=== PATIENT | male | born 2000 | race Asian ===

== ENCOUNTER 2023-07-27 21:05 | Emergency (ER) | payer MEDICAID ==
[~2023-07-27] VITALS: Ht 170.1 cm; Wt 53.1 kg
--- NOTE | 2023-07-27 21:39 | ED General ---
General Chief Complaint: Dizziness/Syncope Stated Complaint: DIZZY/LIGHTHEADED Nursing Triage Note: PATIENT STATES THAT APPROX. 2 HOURS AGO HE BEGAN TO SHAKE AND THEN APPROX 45 MIN AGO HE HAD AN EPISODE OF THROBBING HEAD PAIN, LIGHT HEADEDNESS AND DIZZINESS. CURRENTLY RATES HIS HEADACHE AT 4/10. Source of Information: Patient Exam Limitations: No Limitations History of Present Illness Date Seen by Provider: Jul 27, 2023 Time Seen by Provider: 21:39 Initial Comments Patient is a 23-year-old male who presents ED for generalized weakness, lightheadedness, dizziness, shakiness and chest pain. Patient states symptoms started a few hours ago. Started having shakiness in his upper and lower extremities. This resolved fairly quickly. Patient states he went to ride a mechanical bull at school. [place] fine afterwards and then all of a sudden he started feeling lightheaded, dizzy and throbbing on the right side of his head. He has had history of right-sided head throbbing in the past. States that shakiness seems to be improving some. Denies of any vomiting. He has had some mild chest pain and shortness of breath but that has improved. He reports similar symptoms in the past when he is tired but states he does not feel tired. Patient did eat which did not make any of the symptoms better. Denies of any current pain with urination frequent urination, abdominal pain, visual changes, unilateral weakness or sensory changes, neck pain fever chills runny nose sore throat. Patient denies history of feeling lightheaded or dizzy in the past. Allergies and Home Medications Patient Home Medication List Home Medication List Reviewed: Yes Review of Systems Review of Systems Constitutional: No chills, No diaphoresis; dizziness; No fever, No malaise; weakness EENTM: No blurred vision, No double vision Respiratory: No cough, No dyspnea on exertion Cardiovascular: No chest pain, No edema Gastrointestinal: No abdominal pain, No dysphagia, No nausea, No vomiting Genitourinary: No decreased output, No discharge Musculoskeletal: No back pain, No joint pain All Other Systems Reviewed Negative Unless Noted: Yes Physical Exam Vital Signs Vital Signs - First Documented 07/27/23 21:12 Temp 36.6 Pulse 83 Resp 16 B/P (MAP) 130/87 (101) Pulse Ox 98 O2 Delivery Room Air Capillary Refill : Less Than 3 Seconds Height, Weight, BMI Height: '" Weight: lbs. oz. kg; 18.00 BMI Method: General Appearance: No Apparent Distress, WD/WN Eyes: Bilateral Eye Normal Inspection, Bilateral Eye PERRL, Bilateral Eye EOMI HEENT: PERRL/EOMI, TMs Normal, Normal ENT Inspection, Pharynx Normal Neck: Full Range of Motion, Normal Inspection, Non Tender Respiratory: Chest Non Tender, Lungs Clear, Normal Breath Sounds, No Accessory Muscle Use, No Respiratory Distress Cardiovascular: Regular Rate, Rhythm, No Edema, No Gallop, No JVD Gastrointestinal: Normal Bowel Sounds, No Organomegaly, No Pulsatile Mass, Non Tender Back: Normal Inspection Extremity: Normal Capillary Refill, Normal Inspection Neurologic/Psychiatric: Alert, Oriented x3, No Motor/Sensory Deficits, Normal Mood/Affect, 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 Skin: Normal Color, Warm/Dry Progress/Results/Core Measures Suspected Sepsis SIRS Temperature: Pulse: 83 Respiratory Rate: 16 Laboratory Tests 07/27/23 21:45: White Blood Count 10.3 Blood Pressure 130 /87 Mean: 101 Laboratory Tests 07/27/23 21:45: Creatinine 0.81, Platelet Count 290, Total Bilirubin 2.0H Results/Orders Lab Results Laboratory Tests Test 07/27/23 21:45 07/27/23 21:52 Range/Units White Blood Count 10.3 4.3-11.0 10^3/uL Red Blood Count 4.83 4.30-5.52 10^6/uL Hemoglobin 15.7 13.3-17.7 g/dL Hematocrit 45 40-54 % Mean Corpuscular Volume 92 80-99 fL Mean Corpuscular Hemoglobin 33 25-34 pg Mean Corpuscular Hemoglobin Concent 35 32-36 g/dL Red Cell Distribution Width 12.0 10.0-14.5 % Platelet Count 290 130-400 10^3/uL Mean Platelet Volume 10.0 9.0-12.2 fL Immature Granulocyte % (Auto) 0 % Neutrophils (%) (Auto) 75 42-75 % Lymphocytes (%) (Auto) 17 12-44 % Monocytes (%) (Auto) 6 0-12 % Eosinophils (%) (Auto) 0 0-10 % Basophils (%) (Auto) 0 0-10 % Neutrophils # (Auto) 7.8 1.8-7.8 10^3/uL Lymphocytes # (Auto) 1.8 1.0-4.0 10^3/uL Monocytes # (Auto) 0.7 0.0-1.0 10^3/uL Eosinophils # (Auto) 0.0 0.0-0.3 10^3/uL Basophils # (Auto) 0.0 0.0-0.1 10^3/uL Immature Granulocyte # (Auto) 0.0 0.0-0.1 10^3/uL Sodium Level 140 135-145 MMOL/L Potassium Level 3.9 3.6-5.0 MMOL/L Chloride Level 103 98-107 MMOL/L Carbon Dioxide Level 28 21-32 MMOL/L Anion Gap 9 5-14 MMOL/L Blood Urea Nitrogen 8 7-18 MG/DL Creatinine 0.81 0.60-1.30 MG/DL Estimat Glomerular Filtration Rate 129 BUN/Creatinine Ratio 10 Glucose Level 104 70-105 MG/DL Calcium Level 9.9 8.5-10.1 MG/DL Corrected Calcium 8.5-10.1 MG/DL Magnesium Level 2.2 1.6-2.4 MG/DL Total Bilirubin 2.0 H 0.1-1.0 MG/DL Aspartate Amino Transf (AST/SGOT) 25 5-34 U/L Alanine Aminotransferase (ALT/SGPT) 19 0-55 U/L Alkaline Phosphatase 69 40-136 U/L Total Protein 7.3 6.4-8.2 GM/DL Albumin 4.7 H 3.2-4.5 GM/DL Thyroid Stimulating Hormone (TSH) 3.05 0.35-4.94 UIU/ML Urine Color YELLOW Urine Clarity CLEAR Urine pH 7.0 5-9 Urine Specific Jackson 1.010 L 1.016-1.022 Urine Protein NEGATIVE NEGATIVE Urine Glucose (UA) NEGATIVE NEGATIVE Urine Ketones NEGATIVE NEGATIVE Urine Nitrite NEGATIVE NEGATIVE Urine Bilirubin NEGATIVE NEGATIVE Urine Urobilinogen 0.2 < = 1.0 MG/DL Urine Leukocyte Esterase NEGATIVE NEGATIVE Urine RBC (Auto) TRACE H NEGATIVE Urine RBC NONE /HPF Urine WBC 0-2 /HPF Urine Squamous Epithelial Cells NONE /HPF Urine Crystals NONE /LPF Urine Bacteria TRACE /HPF Urine Casts NONE /LPF Urine Mucus NEGATIVE /LPF Urine Culture Indicated NO My Orders Orders - FER GIVENS Cbc And Automated Diff (07/27/23 21:35) Comprehensive Metabolic Panel (07/27/23 21:35) Magnesium (07/27/23 21:35) Thyroid Stimulating Hormone (07/27/23 21:35) Ekg Tracing (07/27/23 21:35) Ua Culture If Indicated (07/27/23 21:37) Vital Signs/I&O 07/27/23 21:12 Temp 36.6 Pulse 83 Resp 16 B/P (MAP) 130/87 (101) Pulse Ox 98 O2 Delivery Room Air Capillary Refill : Less Than 3 Seconds Blood Pressure Mean: 101 ECG Comment Sinus rhythm with sinus arrhythmia, 75 bpm, QRS duration 80 MS, QTc 349 MS. Departure Communication (PCP) Patient with shakiness dizziness lightheadedness some chest pain and shortness of breath. No known cardiac history. Differential diagnosis dehydration, arrhythmia, viral syndrome, electrolyte abnormality. Patient vital signs stable on arrival. Generalized lab work CBC, CMP, magnesium TSH and urinalysis with EKG. He has no specific chest pain or shortness of breath but did have some chest pain or shortness of breath this evening. EKG was obtained which did not note any arrhythmia, ST elevation or pression. CBC, CMP grossly unremarkable. 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 Patient states symptoms appear to be improving. No strokelike symptoms. States he does have a history of headaches and states this feels very similar. Head pain seems to be improving. Typically occurs when he gets tired. There is no evidence of tremoring. Appropriate strength throughout. No sensory changes. Due to reassuring lab work and presentation recommend outpatient follow-up. Suggest follow-up your PCP in 2 to 3 days for reevaluation. Patient able to ambulate at discharge with a steady gait. Impression Primary Impression: Dizziness Disposition: 01 HOME, SELF-CARE Condition: Stable Departure-Patient Inst. Decision time for Depature: 22:25 Referrals: [facility] [place],LOCAL PHYSICIAN (PCP) Primary Care Physician Patient Instructions: Dizziness, Adult ED Add. Discharge Instructions: Recommend staying hydrated. Recommend outpatient follow-up your primary care physician 2 to 3 days for reevaluation. If any worsening symptoms return back to ED. All discharge instructions reviewed with patient and/or family. Voiced under standing. FRE GIVENS Jul 27, 2023 21:39
[2023-07-27 21:53] LABS: BASOPHILS % (AUTO) 0 % (0-10); EOSINOPHILS % (AUTO) 0 % (0-10); HEMATOCRIT 45 % (40-54); HEMOGLOBIN 15.7 g/dL (13.3-17.7); LYMPHOCYTES # (AUTO) 1.8 10^3/uL (1.0-4.0); LYMPHOCYTES % (AUTO) 17 % (12-44); MEAN CORPUSCULAR HEMOGLOBIN 33 pg (25-34); MEAN CORPUSCULAR HGB CONC 35 g/dL (32-36); MEAN CORPUSCULAR VOLUME 92 fL (80-99); MONOCYTES # (AUTO) 0.7 10^3/uL (0.0-1.0); MONOCYTES % (AUTO) 6 % (0-12); NEUTROPHILS # (AUTO) 7.8 10^3/uL (1.8-7.8); NEUTROPHILS % (AUTO) 75 % (42-75); PLATELET COUNT 290 10^3/uL (130-400); WHITE BLOOD COUNT 10.3 10^3/uL (4.3-11.0)
[2023-07-27 22:11] LABS: ALANINE AMINOTRANSFERASE 19 U/L (0-55); ALBUMIN 4.7 GM/DL (3.2-4.5); ALKALINE PHOSPHATASE 69 U/L (40-136); BUN/CREATININE RATIO 10; CALCIUM 9.9 MG/DL (8.5-10.1); CARBON DIOXIDE 28 MMOL/L (21-32); CHLORIDE 103 MMOL/L (98-107); CREATININE SERUM 0.81 MG/DL (0.60-1.30); GFR ESTIMATED 129; GLUCOSE 104 MG/DL (70-105); MAGNESIUM 2.2 MG/DL (1.6-2.4); POTASSIUM 3.9 MMOL/L (3.6-5.0); SODIUM 140 MMOL/L (135-145); TOTAL PROTEIN 7.3 GM/DL (6.4-8.2)
[2023-07-27 22:17] LABS: CLARITY,URINE CLEAR; COLOR,URINE YELLOW
[2023-07-27 22:18] LABS: BACTERIA,URINE TRACE /HPF; BILIRUBIN,URINE NEGATIVE (NEGATIVE); GLUCOSE, URINE (UA) NEGATIVE (NEGATIVE); KETONES,URINE NEGATIVE (NEGATIVE); LEUKOCYTE ESTERASE ,URINE NEGATIVE (NEGATIVE); NITRITE,URINE NEGATIVE (NEGATIVE); PROTEIN,URINE NEGATIVE (NEGATIVE); WBC,URINE 0-2 /HPF
[2023-07-27 22:30] VITALS: BP 129/82
== END 2023-07-27 22:35 | disposition home or self-care (01) ==
LOC: ER 21:08
DX: R42 Dizziness and giddiness (principal)
CPT/HCPCS: 36415; 80053; 81000; 83735; 84443; 85025; 93005

== ENCOUNTER 2023-08-19 00:40 | Emergency (ER) | payer MEDICAID ==
[~2023-08-19] VITALS: Ht 170 cm; Wt 52.0 kg
--- NOTE | 2023-08-19 02:43 | ED General ---
General Chief Complaint: Neurological Problems Stated Complaint: LIGHTHEADED/DIZZY Nursing Triage Note: PATIENT VERBALIZED DIZZINESS ON/OFF FOR A FEW WEEKS. STATES GETS HEADACHES, HAS LOWER BACK PAIN, RT ARM MUSCLES WERE "FROZEN" TODAY, STATES HE ALSO "LOST FEELING LOWER LEGS" EARLIER TONIGHT Source of Information: Patient Exam Limitations: No Limitations History of Present Illness Date Seen by Provider: Aug 19, 2023 Time Seen by Provider: 02:43 Initial Comments Patient is a 23-year-old male who presents to the emergency room with a chief complaint of feeling dizzy off and on for a couple of weeks. He has had some bitemporal, frontal headaches. Currently rates his headache at an 8. He states he has had some low back pain and muscle "spasms" in his bilateral arms and bilateral legs. He states occasionally he gets numbness and tingling in his feet. No problems with coordination, speech, vision. No family history of brain tumors/aneurysms. He occasionally will take Tylenol or ibuprofen with a little relief of symptoms. He went and did a "workout" at the gym yesterday. He states he did not drink a lot of water afterwards. He knows that he has been behind on his water intake. Endorses increased stress due to travel back and forth to [place] weekly as well as finals coming up. Denies shortness of breath, nausea, vomiting, diarrhea. No urinary complaints. Timing/Duration: Other (2 weeks) Severity: Moderate Associated Systoms: Headaches, Other (Muscle spasm) Allergies and Home Medications Allergies Coded Allergies: No Known Drug Allergies (Unverified , 08/19/23) Patient Home Medication List Home Medication List Reviewed: Yes Naproxen (Naprosyn) 500 Mg Tablet, 500 MG PO BID PRN for headache Prescribed by: KELLY SEGURA on 08/19/23 0418 Review of Systems Review of Systems Constitutional: see HPI EENTM: no symptoms reported Respiratory: no symptoms reported Cardiovascular: no symptoms reported Gastrointestinal: no symptoms reported Genitourinary: no symptoms reported Musculoskeletal: muscle pain, muscle stiffness, muscle cramps Skin: no symptoms reported Psychiatric/Neurological: Other (Dizziness) Past Iovtlzl-Ircqpi-Nbklxa Hx Patient Social History Use of E-Cig and/or Vaping dev: Yes E-Cig or Vaping type used: Nicotine Immunizations Up To Date Influenza Vaccine Up-to-Date: No; Not Current First/Initial COVID19 Vaccinat: 2020 Second COVID19 Vaccination Omer: 2020 Third COVID19 Vaccination Date: 2020 Physical Exam Vital Signs Vital Signs - First Documented 08/19/23 02:00 Temp 35.9 Pulse 72 Resp 18 B/P (MAP) 119/80 (93) Pulse Ox 65 O2 Delivery Room Air Capillary Refill : Less Than 3 Seconds Height, Weight, BMI Height: '" Weight: lbs. oz. kg; 17.00 BMI Method: General Appearance: No Apparent Distress, WD/WN, Thin Eyes: Bilateral Eye Normal Inspection, Bilateral Eye PERRL, Bilateral Eye EOMI HEENT: PERRL/EOMI, TMs Normal, Normal ENT Inspection, Pharynx Normal, Moist Mucous Membranes Neck: Full Range of Motion, Normal Inspection Respiratory: Lungs Clear, Normal Breath Sounds, No Accessory Muscle Use, No Respiratory Distress Cardiovascular: Regular Rate, Rhythm, Normal Peripheral Pulses Gastrointestinal: Non Tender, Soft Extremity: Normal Inspection, Normal Range of Motion, No Pedal Edema Neurologic/Psychiatric: Alert, Oriented x3, No Motor/Sensory Deficits, Normal Mood/Affect, 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, Other (Normal [id number], negative Romberg) Skin: Normal Color, Warm/Dry Progress/Results/Core Measures Suspected Sepsis SIRS Temperature: Pulse: 72 Respiratory Rate: 18 Blood Pressure 119 /80 Mean: 93 Laboratory Tests 08/19/23 03:05: Creatinine 0.75 Results/Orders Lab Results Laboratory Tests Test 08/19/23 03:05 Range/Units Sodium Level 138 135-145 MMOL/L Potassium Level 3.9 3.6-5.0 MMOL/L Chloride Level 104 98-107 MMOL/L Carbon Dioxide Level 24 21-32 MMOL/L Anion Gap 10 5-14 MMOL/L Blood Urea Nitrogen 13 7-18 MG/DL Creatinine 0.75 0.60-1.30 MG/DL Estimat Glomerular Filtration Rate 132 BUN/Creatinine Ratio 17 Glucose Level 98 70-105 MG/DL Calcium Level 9.4 8.5-10.1 MG/DL Total Creatine Kinase 671 H 30-200 U/L My Orders Orders - KELLY SEGURA MD Basic Metabolic Panel (08/19/23 02:52) Creatine Kinase (08/19/23 02:52) Vital Signs/I&O 08/19/23 08/19/23 02:00 04:20 Temp 35.9 36.0 Pulse 72 68 Resp 18 16 B/P (MAP) 119/80 (93) 116/79 Pulse Ox 65 99 O2 Delivery Room Air Room Air Capillary Refill : Less Than 3 Seconds Blood Pressure Mean: 93 Progress Note : Time: 04:20 Progress Note Patient seen and evaluated by me, evaluation today includes history and physical exam with basic metabolic panel and total CK. Pertinent physical exam findings well-developed well-nourished male in no acute distress, stable vital signs, afebrile. Heart is regular, lungs are clear, abdomen is soft. He has good strength and sensation throughout, cranial nerves are intact, negative Romberg, no limb ataxia. Normal gait. Differential diagnosis includes tension headache, electrolyte derangement/low potassium, dehydration As patient's headache is mild at the time of evaluation medications are deferred. Basic metabolic panel independently reviewed and interpreted by me is completely within normal limits. His total CK is elevated at 671. As he is not vomiting I advised oral rehydration with water/Gatorade/Pedialyte. Conservative management with Tylenol and ibuprofen at home. Return precautions provided in both verbal and written format. Patient had asked for IV fluids however there was no indication to start an IV and give fluids. Clinically he is not vomiting and requiring IV medications. Departure Impression Primary Impression: Headache Qualified Codes: G44.219 - Episodic tension-type headache, not intractable Additional Impressions: Elevated CK Muscle cramps Disposition: 01 HOME, SELF-CARE Condition: Stable Departure-Patient Inst. Decision time for Depature: 04:17 Referrals: NO,LOCAL PHYSICIAN (PCP/Family) Primary Care Physician Patient Instructions: Headache, Adult ED Add. Discharge Instructions: Drink plenty of fluids consistently throughout the day to stay well-hydrated. Gatorade/Pedialyte are good choices. Use the naproxen 500 mg tablets twice a day with food as needed for headache. You should call and follow-up with a primary care physician regarding your ongoing headaches and muscle cramps. Return to the emergency department for any new, concerning or emergent complaints. Scripts Naproxen (Naprosyn) 500 Mg Tablet 500 MG PO BID PRN for headache, #20 TAB 0 Refills Prov: KELLY SEGURA MD 08/19/23 Work/School Note: Work Release Form Date Seen in the Emergency Department: Aug 19, 2023 Return to Work: Aug 20, 2023 KELLY SEGURA MD Aug 19, 2023 02:43
[2023-08-19 03:24] LABS: POTASSIUM 3.9 MMOL/L (3.6-5.0)
[2023-08-19 03:25] LABS: CALCIUM 9.4 MG/DL (8.5-10.1)
[2023-08-19 03:30] LABS: CREATININE SERUM 0.75 MG/DL (0.60-1.30)
[2023-08-19] MEDS ORDERED: NAPR-1071 PO (04:18)
[2023-08-19 04:20] VITALS: BP 116/79
== END 2023-08-19 04:22 | disposition home or self-care (01) ==
LOC: EDUNIT# 00:40 → ER 00:42
DX: R51.9 Headache, unspecified (principal); R74.8 Abnormal levels of other serum enzymes; R25.2 Cramp and spasm; F17.290 Nicotine dependence, other tobacco product, uncomplicated
CPT/HCPCS: 36415; 80048; 82550